=== PATIENT | female | born 1965 | race Caucasian/White ===

== ENCOUNTER → 2018-03-23 | Outpatient (CLI) | payer MEDICARE, MEDICAID ==
[~2018-03-23] MED LIST: ABILIFY 5 MG TAB5 MG PO; EFFEXOR XR150 MG PO; LOSARTAN-HCTZ1 EAC3 PO; MOBIC15 MG PO; OMEPRAZOLE 20 M20 M1 PO; OXYCONTIN20 M1 PO; XANAX1 MG PO
--- NOTE | 2018-03-24 14:14 | PAINCON ---
[address] [address] PAIN MANAGEMENT CONSULTATION Name: MAX ASHTON Room: [facility] DEANA AndersonDoretha.#: [id number] Admission: 03/23/18 Attend Phys: Frantz Dixon MD Discharge: Date of : 69 Report #: [id number] THIS REPORT FOR: //name// CC: Nemo Dixon DATE OF SERVICE: 03/23/2018 FOLLOWUP COMPLAINT: "I would like a second opinion." FOLLOWUP HISTORY: The patient is a 52-year-old female who has been followed in the past by a pain clinic because of chronic pain. States that she continues to have pain, which is problematic. She has been having problems since 2002. She is experiencing pain in her hands, which oftentimes are sore. Has back pain, which has been problematic since 2003. Notes that the pain is worse with standing and certain activities. She is not sure that anything significantly improves it. Notes that taking opioids is somewhat helpful, but does not provide as much help that she would like. Describes her discomfort as constant, aching, crushing, pulling, tender and rates it as a 6 today. Oftentimes an 8/10. Feels that a component of her pain is secondary to systemic lupus and the other component is from fibromyalgia. She has some arthritic changes in her cervical spine. States that she has had some problem with her back since she fell from a horse some time ago. She has not had an MRI. States that she is continue to have some pain and discomfort, which radiates and feels like electricity going down into her left leg. She is somewhat claustrophobic and has not had an MRI because of this fear. She has had panic attacks. She does have pain in her knees. She states that both knees were injected. They were injected last week. Notes the pain is worse with a multitude of things such as lifting, bending, activities of daily living, changes in weather, walking, sitting, standing, going from sitting to a standing, and climbing stairs. Medications, heat, and rest can be of some benefit. ALLERGIES: No known drug allergies. CURRENT MEDICATIONS: Xanax 1 mg t.i.d., Abilify 5 mg, losartan/hydrochlorothiazide 100/25, Meloxicam 15 mg, omeprazole 20 mg, oxycodone 20 mg t.i.d., Effexor 150 mg. PAST MEDICAL HISTORY: 1. Depression with anxiety. 2. Esophageal reflux without esophagitis. 3. Essential hypertension, benign. 4. Hyperglycemia. 5. Obesity. 6. [place] [address] PAIN MANAGEMENT CONSULTATION Name: MAX ASHTON [id number] Admission: 03/23/18 Attend Phys: Frantz Dixon MD Discharge: Date of : 69 Report #: [id number] 7. Systemic lupus erythematosus. 8. Vitamin D deficiency. 9. History of lung nodules. PAST SURGICAL HISTORY: Partial hysterectomy in 2001. SOCIAL HISTORY: She is disabled, has not worked since 2003, and receives social security disability. REVIEW OF SYSTEMS: Questionnaire A 12-point, recent weight change, decreased appetite, fever, night sweats, fatigue, headaches, wears glasses, ringing in the ears, hearing loss, mouth sores, sore throat, voice changes, loss of appetite, nausea, vomiting, frequent urination, awakens at night to urinate, joint pain, joints stiffness and swelling, weakness of muscle joints, muscle pain/cramping, back pain, difficulty walking, rash, changes in skin color, change in hair and nails, varicose veins, recurrent headaches, lightheadedness, dizziness, numbness and tingling, memory loss, confusion, nervousness, depression, slow to heal anemia. LABORATORY DATA: No new lab values were available at the time of our interview. PAIN CLINIC ASSESSMENT: 1. History of osteoarthritis. The patient does have some arthritic changes consistent with systemic lupus. 2. Height 5 feet 6 inches, weight 290 pounds, BMI is 45, 3. Vital signs: Blood pressure 144/84, heart rate 99, respiratory rate 16, room air saturation 94%, temperature 98.3. 4. Pain intensity 6/10. 5. Fall risk. The patient has not fallen in the last 3 months. 6. The patient on a blood thinner. The patient is not on a blood thinning medication. 7. History of hypertension. The patient is being treated for hypertension. 8. Opioid therapy greater than 6 weeks. The patient is on opioid therapy and is on 90 morphine equivalents, which is the CDC recommended, highest level recommended. 9. Risk assessment tool. 10. Functional assessment tool. The patient scores is a 60/70, which showed significant problems with activities of daily living secondary to pain. 11. Recreational drug use. The patient denies use of recreational drugs. 12. Tobacco: The patient denies use of tobacco. 13. Alcohol use. The patient denies use of recreational alcohol use. PHYSICAL EXAMINATION: GENERAL: The patient is a well-developed, well-nourished white female. She appears her stated age. She is obese. HEENT: Normocephalic, atraumatic. Extraocular eye muscles are intact. [place] [address] PAIN MANAGEMENT CONSULTATION Name: MAX ASHTON Room: [facility].#: [id number] Admission: 03/23/18 Attend Phys: Frantz Dixon MD Discharge: Date of : 69 Report #: [id number] nonicteric. Hearing is within normal limits. Mucous membranes are moist. NECK: Without adenopathy. Good range of motion, some complaints of neck pain in the trapezius areas, left and right. Muscle strength in the upper extremities judged to be 5/5 for the major muscle groups. LUNGS: Clear to auscultation, somewhat distant. ABDOMEN: Protuberant. Lower extremity muscle strength is judged to be 5/5 for the major muscle groups. MUSCULOSKELETAL: Without significant scoliosis, kyphosis, or lordosis. IMPRESSION: 1. Chronic pain. 2. Gastroesophageal reflux without esophagitis. 3. Essential hypertension. 4. Hyperglycemia. 5. Morbid obesity. 6. Organic sleep apnea and sleep obstruction. 7. Systemic lupus erythematosus. 8. Degenerative joint disease of the knees. RECOMMENDATION: We discussed treatment options with the patient. We have perused the patient's chart. At this juncture, it appears that she is being treated appropriately. We have explained to her that we do not have anything different to offer. The patient has had injections in her back. She has had radiofrequency lesioning in the lower portion of her back, but her pain still remains. Has shoulder pain, hand pain, and pain consistent with fibromyalgia. We explained to the patient that the only items that we have found that have been helpful with fibromyalgia or activities where one would exercise at least 3 times a week, about 45 minutes to the point that one is perspiring. The patient states that when she does this that she is unable to be active for a number of days because of this. We explained to her that like an athlete training one would expect soreness, some difficulty in activities after the activity, but over a period of time that things would be more apt to improve. The patient states that she has systemic lupus. This might account for the pain and discomfort that she has in her hands, shoulders, and some of the other joints. At this juncture, she feels that she might consider surgery because of pain and discomfort in her back. She has not had imaging. At this juncture, she states that she would be willing to undergo imaging. A script for an MRI has been provided. After the patient undergoes with MRI, findings can be evaluated and further decisions regarding her medical condition can be made. We would like to thank you for letting us participate in her care. We hope she continues to improve. <ELECTRONICALLY SIGNED> By: Frantz Dixon MD 03/24/18 1414 [id number] 1910N. Brian Dixon MD /[facility] [place]
== END ==
LOC: M.PC 00:26
DX: M17.0 Bilateral primary osteoarthritis of knee (principal); I10 Essential (primary) hypertension; G89.29 Other chronic pain; K21.9 Gastro-esophageal reflux disease without esophagitis; M32.9 Systemic lupus erythematosus, unspecified; G47.33 Obstructive sleep apnea (adult) (pediatric); E66.01 Morbid (severe) obesity due to excess calories; R73.9 Hyperglycemia, unspecified